=== PATIENT | female | born 1945 | race Native Hawaiian/Other Pacific Islander ===

== ENCOUNTER 2016-08-11 03:43 | Emergency (ER) | payer OTHER ==
[~2016-08-11] VITALS: Ht 165.1 cm; Wt 118.8 kg
[~2016-08-11 03:43] MED LIST: ACET-689 PO; ALLO300T23 PO; ALPR0.5T24 PO; AMLO2.5T PO; BUSPIRONE15 MG PO; CYCL10TA35 PO; DIVALPROEX125 M1 OR; GLIM4TAB PO; GRALISE600 MG OR; JANUVIA100 MG PO; OMEPRAZOLE40 MG OR; OXYB5TAB56 PO; QUETIAPINE25 MG PO; RANO500T PO; TIROSINT100 MCG OR; TRAZ50TA36 PO
[2016-08-11 06:10] VITALS: BP 162/80; TEMP 98.2
== END 2016-08-11 06:12 | disposition home or self-care (01) ==
LOC: ED 03:43
DX: M54.5 Low back pain (principal); N39.0 Urinary tract infection, site not specified
CPT/HCPCS: 81000; 87077; 87086; 87088; 87186; 99282

== ENCOUNTER 2016-09-08 10:47 | Outpatient (CLI) | payer OTHER ==
[2016-09-08 12:57] LABS: PLATELET COUNT 298 K/uL (152-353)
[2016-09-08 13:12] LABS: POTASSIUM 3.8 mmol/L (3.6-5.2)
== END 2016-09-08 21:39 | disposition home or self-care (01) ==
LOC: LABW 10:47 → MAMMO 10:47
PROVIDERS: Physician Assistant
DX: Z12.31 Encounter for screening mammogram for malignant neoplasm of breast (principal); E11.9 Type 2 diabetes mellitus without complications; I10 Essential (primary) hypertension; E03.8 Other specified hypothyroidism; M62.89 Other specified disorders of muscle; E55.9 Vitamin D deficiency, unspecified
CPT/HCPCS: 36415; 80053; 80061; 82306; 82607; 83036; 83735; 84439; 84443; 85027; G0202-TC

== ENCOUNTER 2017-03-05 17:11 | Outpatient (CLI) | payer OTHER | END 2017-03-05 17:14 | disposition short-term general hospital (02) | LOC: AMB 17:11 | DX: R55 Syncope and collapse (principal); R41.82 Altered mental status, unspecified; R56.9 Unspecified convulsions | CPT/HCPCS: A0425; A0427 ==

== ENCOUNTER 2017-09-24 10:05 | Outpatient (CLI) | payer OTHER ==
[2017-09-24 11:33] LABS: PLATELET COUNT 312 K/uL (152-353)
[2017-09-24 11:42] LABS: POTASSIUM 3.7 mmol/L (3.6-5.2)
== END 2017-09-24 21:48 | disposition home or self-care (01) ==
LOC: LABW 10:05
PROVIDERS: Physician Assistant
DX: E03.8 Other specified hypothyroidism (principal); E55.9 Vitamin D deficiency, unspecified; E11.9 Type 2 diabetes mellitus without complications; E53.8 Deficiency of other specified B group vitamins
CPT/HCPCS: 36415; 80053; 80061; 82306; 82607; 83036; 84439; 84443; 85027

== ENCOUNTER 2017-11-18 12:19 | Emergency (ER) | payer OTHER ==
[~2017-11-18] VITALS: Ht 162.6 cm; Wt 108.9 kg
[2017-11-18 13:00] LABS: PLATELET COUNT 291 K/uL (152-353)
[2017-11-18 13:05] LABS: POTASSIUM 4.1 mmol/L (3.6-5.2)
[2017-11-18 14:19] VITALS: BP 134/64; TEMP 98.5
== END 2017-11-18 14:40 | disposition home or self-care (01) ==
LOC: ED 12:19
DX: N39.0 Urinary tract infection, site not specified (principal)
CPT/HCPCS: 36600; 80053; 80307; 81000; 82805; 85027; 87086; 87088; 96360; 96372; 99284; J0696

== ENCOUNTER 2018-12-26 11:08 | Outpatient (CLI) | payer OTHER | END 2018-12-26 23:46 | disposition home or self-care (01) | LOC: LABW 11:08 | DX: R56.9 Unspecified convulsions (principal) | CPT/HCPCS: 36415; 82542 ==

== ENCOUNTER 2019-01-10 10:49 | Emergency (ER) | payer OTHER ==
[~2019-01-10] VITALS: Ht 162.6 cm; Wt 108.9 kg
[2019-01-10 10:53] VITALS: TEMP 98.5
[2019-01-10 11:26] LABS: PLATELET COUNT 279 K/uL (152-353)
[2019-01-10 11:41] LABS: POTASSIUM 3.5 mmol/L (3.6-5.2)
[2019-01-10 13:54] VITALS: BP 152/68
== END 2019-01-10 13:55 | disposition home or self-care (01) ==
LOC: ED 10:49
PROVIDERS: Emergency Medicine
DX: S90.31XA Contusion of right foot, initial encounter (principal); S80.211A Abrasion, right knee, initial encounter; S90.811A Abrasion, right foot, initial encounter; S70.311A Abrasion, right thigh, initial encounter; M47.892 Other spondylosis, cervical region; W01.198A Fall on same level from slipping, tripping and stumbling with subsequent striking against other object, initial encounter; Y92.89 Other specified places as the place of occurrence of the external cause
CPT/HCPCS: 80053; 83735; 85027; 99283

== ENCOUNTER 2019-01-14 11:20 | Outpatient (CLI) | payer OTHER | END 2019-01-14 23:45 | disposition home or self-care (01) | LOC: LABW 11:20 | DX: R56.9 Unspecified convulsions (principal) | CPT/HCPCS: 36415; 82542 ==

== ENCOUNTER 2019-01-15 10:20 | Outpatient (CLI) | payer OTHER | END 2019-01-15 22:17 | disposition home or self-care (01) | LOC: RAD 10:20 | DX: M79.671 Pain in right foot (principal); M79.661 Pain in right lower leg ==

== ENCOUNTER 2019-06-07 08:02 | Outpatient (CLI) | payer MEDICARE, OTHER | END 2019-06-07 08:37 | disposition short-term general hospital (02) | LOC: AMB 08:02 | DX: R06.02 Shortness of breath (principal) | CPT/HCPCS: A0425; A0427 ==

== ENCOUNTER 2020-07-30 13:11 | Outpatient (CLI) | payer OTHER ==
[2020-07-30 13:32] LABS: PLATELET COUNT 310 K/uL (152-353)
[2020-07-30 13:55] LABS: POTASSIUM 4.2 mmol/L (3.6-5.2)
== END 2020-07-30 21:53 | disposition home or self-care (01) ==
LOC: LABW 13:11
PROVIDERS: ATTEND Family Medicine
DX: R53.83 Other fatigue (principal); E78.00 Pure hypercholesterolemia, unspecified; E03.8 Other specified hypothyroidism; Z85.43 Personal history of malignant neoplasm of ovary; I10 Essential (primary) hypertension
CPT/HCPCS: 36415; 80053; 80061; 84443; 85027; 86304

== ENCOUNTER 2022-01-25 15:28 | Observation (INO) | payer OTHER ==
[~2022-01-25] VITALS: Ht 162.6 cm; Wt 114.5 kg
[2022-01-25 15:28] VITALS: BP 114/41; TEMP 98
[2022-01-25 16:06] LABS: PLATELET COUNT 285 K/uL (152-353)
[2022-01-25 16:16] LABS: POTASSIUM 4.3 mmol/L (3.6-5.2)
[2022-01-25 17:24] VITALS: BP 126/53
[2022-01-26] VITALS (7 sets, daily range): BP systolic 116–153; BP diastolic 52–68; TEMP 98–98.5; Ht 162.6 cm; Wt 114.5 kg
[2022-01-26 05:18] LABS: PLATELET COUNT 264 K/uL (152-353)
[2022-01-26] MEDS ORDERED: LIPITOR40 MG PO (05:27)
[2022-01-26] MEDS ORDERED: HYDROXYZINE HYD50 MG PO (05:27)
[2022-01-26] MEDS ORDERED: LEVO0.1224 PO (05:28)
[2022-01-26] MEDS ORDERED: ALLO300T23 PO (05:29)
[2022-01-26] MEDS ORDERED: GABA400C2 PO (05:29)
[2022-01-26] MEDS ORDERED: OXYB5TAB56 PO (05:29)
[2022-01-26] MEDS ORDERED: LISI20TA11 PO (05:29)
[2022-01-26] MEDS ORDERED: PANTOPRAZOLE SO40 M3 PO (05:30)
[2022-01-26] MEDS ORDERED: QUETIAPINE50 MG PO (05:30)
[2022-01-26] MEDS ORDERED: WELLBUTRIN100 M1 PO (05:31)
[2022-01-26] MEDS ORDERED: RIVASTIGMINE1.5 MG PO (05:31)
[2022-01-26] MEDS ORDERED: TIZANIDINE HYDRO2 MG PO (05:31)
[2022-01-26 05:46] LABS: POTASSIUM 3.6 mmol/L (3.6-5.2)
[2022-01-27] VITALS: BP 156/72; TEMP 98.1
[2022-01-27 04:00] VITALS: BP 152/70; TEMP 98.2
[2022-01-27 08:00] VITALS: BP 146/68; TEMP 98.2
[2022-01-27 12:00] VITALS: BP 176/92; TEMP 98.2
== END 2022-01-27 14:06 | disposition home or self-care (01) ==
LOC: ED 15:28 → MED/SURG 17:13
PROVIDERS: Emergency Medicine; ADMIT Internal Medicine; ATTEND Internal Medicine
DX: N17.8 Other acute kidney failure (principal); E86.0 Dehydration; I10 Essential (primary) hypertension; R19.7 Diarrhea, unspecified; E03.8 Other specified hypothyroidism; G89.4 Chronic pain syndrome; E78.49 Other hyperlipidemia; N32.81 Overactive bladder; M10.9 Gout, unspecified; F31.60 Bipolar disorder, current episode mixed, unspecified
CPT/HCPCS: 36415; 80048; 80053; 81002; 82948; 85027; 87635; 96360; 96361; 96365; 96372; 99220; 99284; G0378; J1650; U0003

== ENCOUNTER 2022-02-08 08:43 | Outpatient (CLI) | payer OTHER ==
[~2022-02-08 08:43] MED LIST changes: +GABA400C2 PO; +HYDROXYZINE HYD50 MG PO; +LEVO0.1224 PO; +LIPITOR40 MG PO; +LISI20TA11 PO; +PANTOPRAZOLE SO40 M3 PO; +QUETIAPINE50 MG PO; +RIVASTIGMINE1.5 MG PO; +TIZANIDINE HYDRO2 MG PO; +WELLBUTRIN100 M1 PO
== END 2022-02-08 19:35 | disposition home or self-care (01) ==
LOC: LAB 08:43
PROVIDERS: ATTEND Family Medicine
DX: R19.7 Diarrhea, unspecified (principal)
CPT/HCPCS: 82272; 87015; 87045; 87324; 87328; 87329; 87338; 87449; 87899